=== PATIENT | male | born 1975 | race Asian ===

== ENCOUNTER 2020-06-02 03:30 | Emergency (ER) | payer OTHER, SELFPAY ==
[2020-06-02] VITALS (10 sets, daily range): BP systolic 132–148; BP diastolic 87–97; PULSE 63–107; RESP 12–22; TEMP 36.4; O2SAT 95–99
--- NOTE | ~2020-06-02 | CT_ITS ---
EXAMINATION: CT cervical spine wo con DATE: 06/02/2020 04:58 INDICATION: Neck injury. TECHNIQUE: Computed tomography (CT) of the cervical spine was performed without intravenous contrast. Automated exposure control and iterative reconstruction technique were employed. The dose-length pro duct was 438.76 mGy-cm. COMPARISON: None FINDINGS: There is mild kyphosis of cervical spine. Vertebral body heights and intervertebral disc he ights are normal. 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 At C5-C6, there is mild bilateral uncovertebral joint osteoarthritis. A t C7-T1, there is mild bilateral facet joint osteoarthritis. There is a 1.7 cm nonaggressive lytic le edouard in T1 spinous process, likely benign. IMPRESSION: 1. No fracture. Reviewed, dictated and finalized at location A. L FLAT SURFACER IMPRESSION: 1. No fracture.
--- NOTE | ~2020-06-02 | XR_ITS ---
EXAMINATION: XR tibia fibula LT 2V DATE: 06/02/2020 04:41 INDICATION: Left lower leg injury. TECHNIQUE: 2 views of left tibia and fibula on 4 radiographs were obtained. COMPARISON: None. FINDINGS: Bone alignment is normal. No fracture. There is mild left knee osteoarthritis. IMPRESSION: 1. Mild left knee osteoarthritis. Reviewed, dictated and finalized at location A. TRONIC PAGINATION SYSTEM OPERATOR
--- NOTE | ~2020-06-02 | CT_ITS ---
EXAMINATION: CT brain wo con DATE: 06/02/2020 04:58 INDICATION: Head injury. TECHNIQUE: Computed tomography (CT) of the head was performed without intravenous contrast. The mA wa s adjusted according to patient size. Iterative reconstruction technique was employed. The dose-lengt h product was 681.00 mGy-cm. COMPARISON: None FINDINGS: There is no intracranial hemorrhage, acute infarction, or abnormal intracranial mass lesion . The ventricles are normal in size. The orbits are normal. There is mucosal thickening in the parana vanessa sinuses. The mastoid air cells are normal. There is left posterior superior scalp soft tissue swe lling. IMPRESSION: 1. Normal brain. Reviewed, dictated and finalized at location A. GATIONIST IMPRESSION: 1. Normal brain.
--- NOTE | ~2020-06-02 | CT_ITS ---
EXAMINATION: CT chest abdomen pelvis w con DATE: 06/02/2020 04:59 INDICATION: Left flank pain. Chest and abdominal injury. TECHNIQUE: Computed tomography (CT) of the chest, abdomen, and pelvis was performed with 100 mL Omnip aque 350 intravenous contrast. Automated exposure control and iterative reconstruction technique were employed. The dose-length product was 1712.24 mGy-cm. COMPARISON: None FINDINGS: CHEST CT: The lungs demonstrate mild atelectasis. No pleural effusion. The heart size is normal. No pericardial effusion. ABDOMEN/PELVIS CT: There is a 5.7 x 3.3 cm mass in left hepatic lobe. There is mild splenomegaly measuring 14.1 cm. The gallbladder, pancreas, adrenal glands, and kidneys are normal. There are no dilated loops of bowel. T he appendix is normal. There are no pathologically enlarged lymph nodes. There is no free intraperito leroy fluid. There is no fracture. IMPRESSION: 1. 5.7 x 3.3 cm liver mass, which may be benign or less likely malignant. Abdomen MRI without and wit h contrast is recommended. 2. Mild splenomegaly. Reviewed, dictated and finalized at location A. TALENT MANAGEMENT IMPRESSION: 1. 5.7 x 3.3 cm liver mass, which may be benign or less likely malignant. Abdom en MRI without and with contrast is recommended. 2. Mild splenomegaly.
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
[2020-06-02 04:25] LABS: Basophils Percent Auto 0.3 % (0.2-1.2); Eosinophils Absolute Auto 0.2 K/mm3 (0-0.3); Hematocrit 49.6 % (42.0-52.0); Hemoglobin 17.3 g/dL (14.0-18.0); Immature Granulocyte Absolute 0.05 K/mm3 (0.00-0.031); Immature Granulocyte Percent A 0.7 % (0-0.5); Lymphocytes Absolute Auto 1.52 K/mm3 (0.9-3.2); Lymphocytes Percent Auto 20.3 % (18.3-44.2); Mean Corpuscular HGB Conc 34.9 g/dl (32-36); Mean Corpuscular Hemoglobin 31.5 pg (26-34); Mean Corpuscular Volume 90.2 fl (80-100); Mean Platelet Volume 9.9 fl (7.4-10.4); Monocytes Absolute Auto 0.5 K/mm3 (0.1-0.6); Monocytes Percent Auto 6.4 % (2.6-8.5); Neutrophils Absolute Auto 5.3 K/mm3 (1.3-6.7); Neutrophils Percent Auto 70.3 % (45.5-73.1); Platelet Count Result 197 k/mm3 (150-375); White Blood Count 7.5 K/mm3 (4.5-10.0)
[2020-06-02 04:36] LABS: INR 0.9; Partial Thromboplastin Time 27.5 SECONDS (22.3-36.8); Prothrombin Time 13.1 Seconds (11.1-14.7)
[2020-06-02 04:39] LABS: Alanine Aminotransferase 31 U/L (4-50); Albumin Level 4.1 g/dL (3.5-5.1); Alkaline Phosphatase 67 U/L (38-126); Anion Gap 8 mmol/L (8-16); Aspartate Amino Transferase 35 U/L (17-59); Bilirubin,Total 0.6 mg/dL (0.2-1.3); Blood Urea Nitrogen 18 mg/dL (9-20); Calcium 9.2 mg/dL (8.4-10.2); Carbon Dioxide 30 mmol/L (22-30); Chloride 102 mmol/L (98-107); Estimated Glomerular Filt Rate 55; Glucose 136 mg/dL (75-110); Potassium 3.8 mmol/L (3.4-5.0); Sodium 140 mmol/L (137-145)
--- NOTE | 2020-06-02 05:10 | ECG_ITS ---
Measurements Intervals [place] Rate: 85 P: 42 DE: 140 QRS: -51 QRSD: 116 T: -7 QT: 376 QTc: 449 Interpretive Statements SINUS RHYTHM LEFT ANTERIOR FASCICULAR BLOCK BORDERLINE T WAVE ABNORMALITY- INFERIOR LEADS ABNORMAL ECG Electronically Signed On 06-02-2020 7:03:12 DIPLOMATIC OFFICER by Morro Younger D.O.
[2020-06-02 05:41] LABS: Troponin I < 0.012 ng/mL (0.000-0.034)
[2020-06-02] MEDS: TETANUS,DIPHTHERIA,AC PERTUSSIS ADULT (0.5 ML) BOOSTRIX IM (07:02)
[2020-06-03 11:23] LABS: Estimated Glomerular Filt Rate 51
== END 2020-06-02 07:30 | disposition home or self-care (01) ==
PROVIDERS: Emergency Provider Emergency Medicine
DX: S01.01XA Laceration without foreign body of scalp, initial encounter (principal); S80.812A Abrasion, left lower leg, initial encounter; S30.810A Abrasion of lower back and pelvis, initial encounter; Z23 Encounter for immunization; I44.4 Left anterior fascicular block; R94.31 Abnormal electrocardiogram [ECG] [EKG]; M17.12 Unilateral primary osteoarthritis, left knee; R16.1 Splenomegaly, not elsewhere classified; R16.0 Hepatomegaly, not elsewhere classified; V68.6XXA Passenger in heavy transport vehicle injured in noncollision transport accident in traffic accident, initial encounter
CPT/HCPCS: 12001; 36415; 70450; 71260; 72125; 73590; 74177; 80053; 84484; 85025; 85610; 85730; 90471; 90715; 93005; 99284; Q9967